=== PATIENT | male | born 1985 | race Caucasian/White ===

== ENCOUNTER 2023-11-12 04:18 | Emergency (ER) | payer BC ==
[2023-11-12 04:29] VITALS: BP 143/96; PULSE 73; RESP 19; TEMP 97.5; BMI 23.6
[2023-11-12] MEDS ORDERED: ALBUTEROL SO4 HFA INHALER IH ONE (05:24)
[2023-11-12] MEDS ORDERED: DEXAMETHASONE 4 MG TABLET (FP) ONE (05:25)
[2023-11-12] MEDS: DEXAMETHASONE 4 MG TABLET (FP) PO ONE (05:26)
[2023-11-12] MEDS: ALBUTEROL SO4 HFA INHALER IH ONE (05:26)
== END 2023-11-12 06:09 | disposition home or self-care (01) ==
LOC: JER 04:18
PROC: 3E0F7GC Introduction of Other Therapeutic Substance into Respiratory Tract, Via Natural or Artificial Opening (ICD-10-PCS; principal; 2023-11-12)
DX: R05.9 Cough, unspecified (principal); R09.81 Nasal congestion; R07.0 Pain in throat; Z20.822 Contact with and (suspected) exposure to COVID-19
CPT/HCPCS: 0241U-QW; 99283-25